=== PATIENT | female | born 1995 | race Caucasian/White ===

== ENCOUNTER 2017-03-05 10:56 | Emergency (ER) | payer OTHER ==
[~2017-03-05] VITALS: Ht 157.5 cm; Wt 52.0 kg
[2017-03-05 10:57] VITALS: BP 135/82; PULSE 67; RESP 12; TEMP 98.5; O2SAT 98
[2017-03-05] MEDS ORDERED: EPIP0.3I SQ (11:25)
[2017-03-05] MEDS ORDERED: CEPH-460 PO (11:25)
--- NOTE | 2017-03-05 11:28 | PD ---
HPI Chief Complaint: Medical Clearance Time Seen by Provider: 11:24 Travel History International Travel<30 days: No Contact w/Intl Traveler<30days: No Traveled to known affect area: No History of Present Illness HPI 22-year-old female presents emergency Department with complaint of a rash to the dorsal aspect of her right foot that she woke up with 2 days ago. The night before she noticed the rash she had an episode of onset of hives, airway edema, tongue swelling, lip swelling, facial swelling, and difficulty talking. She did not seek medical attention and took Claritin and her symptoms decreased and subsided after time. She doesn't know if she was bit by some type of insect and had an allergic reaction to that. She had also eaten ahi tuna and drink some wine and had onset of symptoms about 2-1/2 hours afterwards, which neither of these food or drink were new to her. Denies new exposures to foods, drinks, detergents, lotions, soaps, perfumes, environmental exposures. She denies any symptoms of airway edema, tongue swelling, shortness of breath, difficulty breathing at this time. Reports rash to right that is itchy and has a burning sensation. Denies fever, vomiting. Tetanus status unknown. No known allergies. Has no other medical complaints. Symptoms at this time are mild in severity. He has not taken any medications or tried any treatments to alleviate the rash. No other modifying factors or associated signs and symptoms. PFSH Past Medical History Medical History: Denies Significant Hx Tetanus Vaccination: > 5 Years Influenza Vaccination: No ?: Not LMP: 03/03/17 Past Surgical History Surgical History: No Previous Surgery Social History Alcohol Use: No Tobacco Use: No Substance Use: No Allergies-Medications (Allergen,Severity, Reaction): Coded Allergies: No Known Allergies (Unverified , 03/05/17) Reported Meds & Prescriptions Reported Meds & Active Scripts Active Epipen 2-Andi Inj (Epinephrine) 0.3 Mg/0.3 Ml Pfpen 0.3 Mg SQ ONCE PRN Keflex (Cephalexin) 500 Mg Cap 500 Mg PO Q8H 7 Days Review of Systems Except as stated in HPI: all other systems reviewed are Neg Physical Exam Narrative GENERAL: Well-nourished, well-developed female patient, in no acute distress; afebrile, nontoxic-appearing SKIN: Warm and dry. Dorsal aspect of right foot with multiple small pustules with minimal surrounding erythema. Right lower exudate supple and non-tense with 2+ pedal pulse and sensory intact and without erythema or edema. No lymphangitis. HEAD: Atraumatic. Normocephalic. EYES: Pupils equal and round. No scleral icterus. No injection or drainage. ENT: Mucosa pink and moist. No erythema or exudates. No uvular edema. No uvular , palatal, or tonsillar deviation. Airway patent. EARS: Bilateral pinnae and external canals appear within normal limits. NECK: Trachea midline. No lymphadenopathy. CARDIOVASCULAR: Regular rate and rhythm. No murmur appreciated. RESPIRATORY: No accessory muscle use. Clear to auscultation. Breath sounds equal bilaterally. No retractions or tachypnea. GASTROINTESTINAL: Abdomen soft, non-tender, nondistended. Hepatic and splenic margins not palpable. Bowel sounds are active 4 quadrants. MUSCULOSKELETAL: No obvious deformities. No clubbing. No cyanosis. No edema. NEUROLOGICAL: Awake and alert. Oriented 3. No obvious cranial nerve deficits. Motor grossly within normal limits. Normal speech. Moves all extremities. 5/5 strength to all extremities. PSYCHIATRIC: Appropriate mood and affect; insight and judgment normal. Data Data Last Documented VS Vital Signs Date Time Temp Pulse Resp B/P (MAP) Pulse Ox O2 Delivery O2 Flow Rate FiO2 03/05/17 10:57 98.5 67 12 135/82 (99) 98 Orders Orders Tetanus/Diphtheria Tox Adult (Tetanus/Di (03/05/17 11:30) MDM Medical Decision Making Medical Screen Exam Complete: Yes Emergency Medical Condition: Yes Medical Record Reviewed: Yes Differential Diagnosis Insect bite, nonspecific reaction, anaphylactic reaction, allergic reaction Narrative Course 22-year-old female physical exam consistent with a nonspecific skin eruption/ rash to the dorsal aspect of her right foot. The rash does appear like ant bites. Patient reports symptoms of an anaphylactic reaction 3 nights ago and then woke up noticing the rash on her foot the next Morning. She has no symptoms of anaphylactic/allergic reaction at this time. She is in no acute distress. Lung sounds are clear and equal bilaterally. Tetanus updated in the ER. Keflex prescribed for home. Instructed patient to take Benadryl as instructed as needed for rash/itching. Due to the report of patient's symptoms I will prescribe an EpiPen for home. Instructed patient to follow up with primary care provider for allergy testing. Patient verbalizes understanding and agreement. Instructed patient to follow up with primary care provider. Patient verbalizes understanding and agreement with treatment plan. Patient is medically cleared and stable for discharge. Discussed reasons to return to the emergency department. Patient agrees with treatment plan. The patients vital signs are stable and the patient is stable for outpatient follow-up and treatment. Patient discharged home, stable and in no acute distress. Diagnosis Primary Impression: Rash and nonspecific skin eruption Additional Impression: Allergic reaction Qualified Codes: T78.40XA - Allergy, unspecified, initial encounter Referrals: Primary Care Physician Patient Instructions: Acute Rash (ED), General Allergic Reaction (ED), General Instructions, Insect Bite or Sting (ED) Departure Forms: Tests/Procedures, Work Release Enter return to work date: Mar 05, 2017 Additional Instructions: Antibiotics as prescribed Keep area clean and dry Benadryl as directed and as needed for rash/itching Topical anti-itch cream, such as hydrocortisone cream or topical Benadryl, as directed and as needed for itching Avoid foods and drinks that were consumed prior to allergic reaction EpiPen as prescribed and as needed for anaphylactic allergic reaction Follow-up with primary care provider for allergy testing Follow-up with primary care provider Return to emergency department immediately with worsening of symptoms Med/Other Pt SpecificInfo: Prescription(s) given Scripts Epinephrine Inj (Epipen 2-Andi Inj) 0.3 Mg/0.3 Ml Pfpen 0.3 MG SQ ONCE Y for ALLERGIC REACTION, #1 PACK 0 Refills Prov: Hina Bradley 03/05/17 Cephalexin (Keflex) 500 Mg Cap 500 MG PO Q8H for Infection for 7 Days, #21 CAP 0 Refills Prov: Hina Bradley 03/05/17 Disposition: 01 DISCHARGE HOME Condition: Stable Hina Bradley Mar 05, 2017 11:28
[2017-03-05] MEDS ORDERED: TETANUS/DIPHTHERIA TOXOID ADULT 0.5 ML VIAL IM ONE (11:30)
== END 2017-03-05 11:49 | disposition home or self-care (01) ==
LOC: NEPK 10:56
DX: R21 Rash and other nonspecific skin eruption (principal); T78.40XA Allergy, unspecified, initial encounter; Z23 Encounter for immunization
CPT/HCPCS: 90471; 90714

== ENCOUNTER 2017-10-16 09:30 | Emergency (ER) | payer OTHER ==
[~2017-10-16] VITALS: Ht 157.5 cm; Wt 53.0 kg
[~2017-10-16 09:30] MED LIST: CEPH-460 PO; EPIP0.3I SQ
[2017-10-16 09:31] VITALS: BP 137/76; PULSE 117; RESP 18; TEMP 98.2; O2SAT 98
[2017-10-16] MEDS ORDERED: predniSONE 20 MG TAB PO ONE (09:45)
--- NOTE | 2017-10-16 09:53 | PD ---
HPI Chief Complaint: Allergic/Adverse Reaction Time Seen by Provider: 09:32 Travel History International Travel<30 days: No Contact w/Intl Traveler<30days: No Traveled to known affect area: No History of Present Illness HPI 22-year-old female presents emergency department status post fire ant bite earlier this morning approximately 20 minutes prior to arrival. 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 Patient currently states no allergic symptoms. She is jittery from the epinephrine but otherwise feels fine. She has a small bite on the right dorsal foot which has mild burning. She has no known drug allergies. PFSH Past Medical History Medical History: Denies Significant Hx ?: Not Past Surgical History Tonsillectomy: Yes Social History Alcohol Use: No Tobacco Use: No Substance Use: No Allergies-Medications (Allergen,Severity, Reaction): Coded Allergies: fire ant (Verified Allergy, Severe, 10/16/17) Reported Meds & Prescriptions Reported Meds & Active Scripts Active Ranitidine (Ranitidine HCl) 150 Mg Tab 150 Mg PO BID Prednisone (21) 5 mg tab Dose Pack (Prednisone) 5 Mg Dspk 5 Mg PO DIRECTED Epipen 2-Andi Inj (Epinephrine) 0.3 Mg/0.3 Ml Pfpen 0.3 Mg IM ONCE PRN Epipen 2-Andi Inj (Epinephrine) 0.3 Mg/0.3 Ml Pfpen 0.3 Mg SQ ONCE PRN Review of Systems Except as stated in HPI: all other systems reviewed are Neg General / Constitutional: No: Fever Eyes: No: Visual changes HENT: No: Headaches Cardiovascular: Positive: Tachycardia, No: Chest Pain or Discomfort Respiratory: No: Shortness of Breath Gastrointestinal: No: Abdominal Pain Genitourinary: No: Dysuria Musculoskeletal: No: Pain Skin: No Rash Neurologic: No: Weakness Psychiatric: No: Depression Endocrine: No: Polydipsia Hematologic/Lymphatic: No: Easy Bruising Physical Exam Narrative GENERAL: Patient appears jittery but otherwise in no acute distress. SKIN: Warm and dry. Normal color. Normal turgor. Patient is a small bite chuck to the right dorsal foot without significant swelling or erythema. HEAD: Atraumatic. Normocephalic. EYES: Pupils equal and round. No scleral icterus. No injection or drainage. ENT: No nasal bleeding or discharge. Mucous membranes pink and moist. Pharynx is clear. Airways patent. Tongue appears normal NECK: Trachea midline. Supple nontender. CARDIOVASCULAR: Tachycardic rate and rhythm. RESPIRATORY: No accessory muscle use. Clear to auscultation. Breath sounds equal bilaterally. GASTROINTESTINAL: Abdomen soft, non-tender, nondistended. Hepatic and splenic margins not palpable. MUSCULOSKELETAL: Extremities without clubbing, cyanosis, or edema. No obvious deformities. NEUROLOGICAL: Awake and alert. No obvious cranial nerve deficits. Motor grossly within normal limits. Five out of 5 muscle strength in the arms and legs. Normal speech. PSYCHIATRIC: Appropriate mood and affect; insight and judgment normal. Data Data Last Documented VS Vital Signs Date Time Temp Pulse Resp B/P (MAP) Pulse Ox O2 Delivery O2 Flow Rate FiO2 10/16/17 09:31 98.2 117 18 137/76 (96) 98 Orders Orders Prednisone (Deltasone) (10/16/17 09:45) Famotidine (Pepcid) (10/16/17 10:00) Ed Discharge Order (10/16/17 11:34) [facility] Medical Decision Making Medical Screen Exam Complete: Yes Emergency Medical Condition: Yes Differential Diagnosis Fire ant bite. Use of EpiPen. History of anaphylaxis secondary to fire ant bite. Narrative Course Patient is medically stable at time of exam. Patient is given 60 mg prednisone p.o. as well as 20 mg Pepcid p.o. Patient will be observed for the next 4 hours. After 2 hours the patient is back to normal and feels well. I feel it is safe for discharge at this time. Patient is continued on prednisone Dosepak as prescribed. Patient also given ranitidine 150 mg twice daily for 2 weeks. Patient is given a refill of her EpiPen as directed Recommend patient follow-up with an insurance salesman as discussed. Patient should return to emergency department immediately with worsening symptoms as discussed. Diagnosis Primary Impression: Allergic reaction to insect bite Patient Instructions: Epinephrine (By injection), General Instructions Additional Instructions: After 2 hours the patient is back to normal and feels well. I feel it is safe for discharge at this time. Patient is continued on prednisone Dosepak as prescribed. Patient also given ranitidine 120 mg twice daily for 2 weeks. Patient is given a refill of her EpiPen as directed Recommend patient follow-up with an insurance salesman as discussed. Patient should return to emergency department immediately with worsening symptoms as discussed. Med/Other Pt SpecificInfo: Prescription(s) given Scripts Ranitidine (Ranitidine) 150 Mg Tab 150 MG PO BID for Heartburn Management, #60 TAB 0 Refills Prov: Zafar Gonzalez MD 10/16/17 Prednisone (21) 5 mg tab Dose Pack (Prednisone (21) 5 mg tab Dose Pack) 5 Mg Dspk 5 MG PO DIRECTED for Inflammation, #1 DSPK 0 Refills Prov: Zafar Gonzalez MD 10/16/17 Epinephrine Inj (Epipen 2-Andi Inj) 0.3 Mg/0.3 Ml Pfpen 0.3 MG IM ONCE Y for ALLERGIC REACTION, #1 PACK 0 Refills Prov: Zafar Gonzalez MD 10/16/17 Disposition: 01 DISCHARGE HOME Condition: Stable Matthias Saldivar October 16, 2017 09:53
[2017-10-16] MEDS ORDERED: FAMOTIDINE 20 MG TAB PO ONE (10:00)
[2017-10-16] MEDS ORDERED: EPIP0.3I IM (11:31)
[2017-10-16] MEDS ORDERED: PRED5PAK PO (11:31)
[2017-10-16] MEDS ORDERED: RANI150T PO (11:45)
== END 2017-10-16 11:54 | disposition home or self-care (01) ==
LOC: NEPD 09:30
DX: T63.481A Toxic effect of venom of other arthropod, accidental (unintentional), initial encounter (principal)
CPT/HCPCS: 99283; J7512